=== PATIENT | female | born 1980 | race Caucasian/White ===

== ENCOUNTER 2017-02-08 11:50 | Emergency (ER) | payer OTHER ==
[~2017-02-08] VITALS: Ht 165.1 cm; Wt 117.9 kg
[~2017-02-08 11:50] MED LIST: AMOXICILLIN875 MG PO; ANAPROX DS550 MG PO; BACTRIM DS TAB1 EACH PO; CORTISPORIN OTI10 ML OT; FLEXERIL PO; IBUPROFEN 800800 MG PO; KEFLEX500 MG PO; LOTRIMIN AF12 GM TP; MOBIC15 MG PO; NOHOMEMEDICATIONS; NORCO 5-325 TA1 EACH PO; PREDNISONE50 MG PO; TRAMADOL 50 MG50 MG PO; ZANAFLEX4 MG PO
[2017-02-08] MEDS ORDERED: TRAMADOL 50 MG50 MG PO (13:39)
[2017-02-08] MEDS ORDERED: NAPROXEN375 MG PO (13:39)
[2017-02-08 14:08] VITALS: BP 151/104
== END 2017-02-08 14:16 | disposition home or self-care (01) ==
LOC: ER 11:50
DX: S83.92XA Sprain of unspecified site of left knee, initial encounter (principal); S93.402A Sprain of unspecified ligament of left ankle, initial encounter; J45.909 Unspecified asthma, uncomplicated; F17.210 Nicotine dependence, cigarettes, uncomplicated; F10.99 Alcohol use, unspecified with unspecified alcohol-induced disorder; X58.XXXA Exposure to other specified factors, initial encounter; Y93.89 Activity, other specified; Y92.89 Other specified places as the place of occurrence of the external cause; Y99.8 Other external cause status

== ENCOUNTER 2017-08-09 09:46 | Emergency (ER) | payer OTHER ==
[~2017-08-09] VITALS: Ht 165.1 cm; Wt 113.4 kg
[~2017-08-09 09:46] MED LIST changes: +NAPROXEN375 MG PO
[2017-08-09] MEDS ORDERED: FLEXERIL PO (11:19)
[2017-08-09] MEDS ORDERED: IBUPROFEN 800800 M1 PO (11:19)
[2017-08-09 11:25] VITALS: BP 149/85
== END 2017-08-09 11:25 | disposition home or self-care (01) ==
LOC: ER 09:46
DX: S30.0XXA Contusion of lower back and pelvis, initial encounter (principal); J45.909 Unspecified asthma, uncomplicated; F17.210 Nicotine dependence, cigarettes, uncomplicated; F10.99 Alcohol use, unspecified with unspecified alcohol-induced disorder; W18.2XXA Fall in (into) shower or empty bathtub, initial encounter; Y93.89 Activity, other specified; Y92.89 Other specified places as the place of occurrence of the external cause; Y99.8 Other external cause status

== ENCOUNTER 2018-09-13 13:56 | Emergency (ER) | payer OTHER ==
[~2018-09-13] VITALS: Ht 165.1 cm; Wt 107.0 kg
[~2018-09-13 13:56] MED LIST changes: +IBUPROFEN 800800 M1 PO
[2018-09-13 14:19] LABS: URINE BILIRUBIN NEGATIVE (Negative); URINE BLOOD NEGATIVE (Negative); URINE CLARITY CLEAR; URINE COLOR YELLOW; URINE GLUCOSE-RANDOM* NEGATIVE (Negative); URINE KETONES NEGATIVE (Negative); URINE LEUKOCYTES-REFLEX NEGATIVE (Negative); URINE NITRITE-REFLEX NEGATIVE (Negative); URINE PROTEIN (DIPSTICK) NEGATIVE (Negative); URINE SPECIFIC GRAVITY 1.025 (1.005-1.035); URINE UROBILINOGEN 0.2 E.U./dl (0.2-1.0)
[2018-09-13 15:23] LABS: ABSOLUTE NEUTROPHILS 3.9 thou/uL (1.4-8.2); BASOPHILS 0.6 % (0.0-2.0); EOSINOPHILS 1.4 % (0.0-3.0); HEMATOCRIT 40.7 % (37.0-47.0); HEMOGLOBIN 14.2 gm/dL (12.0-15.0); LYMPHOCYTES 31.1 % (24.0-44.0); MCH 31.2 pg (26.0-34.0); MCHC 34.9 g/dL (28.0-37.0); MCV 89.4 fL (80.0-100.0); MONOCYTES 6.2 % (1.0-8.0); PLATELET COUNT 200 thou/uL (150-400); POLYS 60.7 % (36.0-66.0); RBC 4.55 mil/uL (4.20-5.00); RDW 13.1 % (10.5-14.5); WBC 6.5 thou/uL (4.0-11.0)
[2018-09-13 15:34] LABS: CALCIUM 9.1 mg/dL (8.5-10.1); CREATININE 0.9 mg/dL (0.6-1.0); POTASSIUM 3.9 mmol/L (3.5-5.1)
[2018-09-13 15:40] LABS: ALBUMIN 4.1 g/dL (3.4-5.0); TOTAL BILIRUBIN 0.6 mg/dL (<0.1-1.0); TOTAL PROTEIN 7.6 g/dL (6.4-8.2)
[2018-09-13] MEDS ORDERED: ZOFRAN ODT8 MG PO (16:11)
[2018-09-13] MEDS ORDERED: NAPROSYN500 MG PO (16:11)
[2018-09-13] MEDS ORDERED: NORCO 5-325 TA1 EACH PO (16:11)
[2018-09-13 16:56] VITALS: BP 136/74
== END 2018-09-13 16:58 | disposition home or self-care (01) ==
LOC: ER 13:56
PROVIDERS: Emergency Medicine; Student in an Organized Health Care Education/Training Program
DX: K85.90 Acute pancreatitis without necrosis or infection, unspecified (principal); R10.2 Pelvic and perineal pain; F17.210 Nicotine dependence, cigarettes, uncomplicated; J45.909 Unspecified asthma, uncomplicated

== ENCOUNTER → 2018-09-25 | Outpatient (CLI) | payer OTHER ==
[~2018-09-25] MED LIST changes: +NAPROSYN500 MG PO; +ZOFRAN ODT8 MG PO
== END ==
LOC: MRI 09:19
DX: K85.00 Idiopathic acute pancreatitis without necrosis or infection (principal); Q89.3 Situs inversus; Z90.49 Acquired absence of other specified parts of digestive tract; Z68.39 Body mass index [BMI] 39.0-39.9, adult